=== PATIENT | female | born 1995 | race Caucasian/White ===

== ENCOUNTER 2018-10-31 21:37 | Inpatient (IN) | payer OTHER ==
[2018-10-31 22:29] LABS: BASO % 0.4 % (0-2.0); EOS % 0.6 % (0-4.5); HEMATOCRIT 35.4 % (32.4-45.2); HEMOGLOBIN 12.4 GM/dL (10.7-15.3); LYMPH % 22.1 % (8-40); MCH 30.2 pg (25.7-33.7); MCHC 35.1 g/dl (32.0-36.0); MEAN PLT VOLUME 9.5 fl (7.5-11.1); MONO % 7.8 % (3.8-10.2); NEUT % 69.1 % (42.8-82.8); PLATELET COUNT 217 K/MM3 (134-434); RBC 4.11 M/mm3 (3.60-5.2); WHITE BLOOD COUNT 9.5 K/mm3 (4.0-10.0)
[2018-10-31] MEDS ORDERED: SODIUM PHOSPHATE/NA BIPHOS 133 ML ENEMA PR ONE (22:30)
[2018-10-31 22:43] LABS: INR 0.92 (0.83-1.09); PROTHROMBIN TIME (PATIENT) 10.9 SEC (9.7-13.0)
--- NOTE | 2018-10-31 22:45 | HP ---
Past Medical History - Primary Care Physician PCP:: Estefania Jenkins - Admission Chief Complaint: 23 yrs , EDC 11/03/18 , 39.4/7 weeks gestation, srom since 9.10 PM , no pain yet . History of Present Illness: pt has care at [facility] she was evaluated on 10/21/18 in L&D for decrease FM . 10/21/18 sono 36.4 weeks , bpp4/8, mitchell 13.2 she was observed in L&D for continuous monitoring , FHR throughout stay was cat-1 Repeat sono & BPP with MFM reported as 38.2 weeks, Vx, Ant Placenta, Bpp8/8, EFW 6'15" , MITCHELL 12.8 cm pt was instructed to keep watch on FM , she returned for NST on 10/25 & 10/28. she did not go back to follow with her clinic chart was obtained 06/26/18 O Pos, Rubella immune, Hbsag neg, h/h10.9/31.0, hiv neg 07/04/18 1 hr gtt 123 , h/h11/32 , AFP neg FINAL EDC assigned to her was 10/24/18 Sonogram done for growth : Sono --21.1 wks 08/20/18-- 29.6 wks, 09/18/18--33.3 wks h/o Tdap & Flu vaccine taken 10/21/18 labs hIV neg History Source: Patient, Medical Record Limitations to Obtaining History: No Limitations - Past Medical History PHOTOSTATIC COPY MAKER: No: Migraine, Seizure Cardiovascular: No: HTN, Murmur Pulmonary: No: Asthma Hepatobiliary: Yes: Other (none known) Renal/: No: UTI ...: 3 ...Para: 2 (2NSVD 2011 in [place] baby girl, 2013 in [place]-baby girl ) ...Term: 2 ...LMP: 02/11/18 ... Weeks Gestation by Dates: 37.4 ...EDC by Dates: 11/18/18 (Mistaken dates ) ...EDC by Sono: 11/03/18 (39.4 weeks by SONO ) Heme/Onc: Yes: Anemia (rx po vit & iron), Other (denies) Infectious Disease: Yes: Other (declines std) Psych: No: Addictions, Anxiety, Bipolar, Depression, Panic, Psychosis, Schizophrenia, Other Endocrine: No: Diabetes Insipidus, Diabetes Mellitus, Hyperthyroidism, Hypothyroidism - Past Surgical History Past Surgical History: Yes: None Hx Myomectomy: No Hx Transabdominal Cerclage: No - Smoking History Smoking history: Never smoked Have you smoked in the past 12 months: No - Alcohol/Substance Use Hx Alcohol Use: No History of Substance Use: reports: None Home Medications - Allergies Allergies/Adverse Reactions: Allergies Allergy/AdvReac Type Severity Reaction Status Date / Time No Known Allergies Allergy Verified 10/25/18 15:52 - Home Medications Home Medications: Ambulatory Orders Prenat 115/Iron Fum/Folic/Dss [ 19 Tablet] 1 tab PO DAILY 10/21/18 Physical Exam - Maternity Constitutional: Yes: Well Nourished, No Distress, Anxious Eyes: Yes: WNL HENT: Yes: WNL, Normocephalic Neck: Yes: WNL, Supple Cardiovascular: Yes: WNL, Regular Rate and Rhythm Lungs: Clear to auscultation Breast(s): Yes: WNL. No: Mass - Abdominal Exam/OB Fundal Height: 38 Number of Fetuses: Single Presentation: Vertex Contractions: No Monitor Mode: External Heart Rate (range): 145 Heart Rate Location: [facility] Category: I Accelerations: Uniform - Vaginal Exam/OB Vaginal Bleediing: No Speculum Exam: No Dilatation (cm): 1-2 Effacement (%): 60 Amniotic Membrane Status: Ruptured Nitrazine Test: Positive Amniotic Fluid: Yes: Clear Presentation: Vertex/Position (exam time at 9.50 PM) Station: -3 - Physical Exam Musculoskeletal: Yes: WNL Extremities: Yes: WNL. No: Calf Tenderness Edema: Yes Edema: LLE: 1+, RLE: 1+ Integumentary: Yes: Tattoos Deep Tendon Reflex Grade: Normal +2 ...Motor Strength: WNL Psychiatric: Yes: WNL, Alert, Oriented - Labs Lab Results: CBC, BMP 10/31/18 22:00 Microbiology 10/21/18 22:45 Vaginal Group B Streptococcus Screen (RORY) - Final NO BETA HEMOLYTIC STREPTOCOCCI ISOLATED Laboratory Tests 10/21/18 10/21/18 21:45 22:45 C. trachomatis (ADAM) Negative HIV 1&2 Antibody Screen Negative HIV P24 Antigen Negative N. gonorrhoeae (ADAM) Negative Laboratory Tests 10/31/18 22:00 PT with INR 10.90 INR 0.92 PTT (Actin FS) 27.2 Laboratory Tests 10/31/18 22:00 Sodium 136 Potassium 3.8 Chloride 105 Carbon Dioxide 21 BUN 8 Creatinine 0.5 L Random Glucose 115 H Calcium 8.6 Problem List - Problems (1) with 39 completed weeks gestation Code(s): Z3A.39 - 39 WEEKS GESTATION OF (2) SROM (spontaneous rupture of membranes) Code(s): UIV5214 - Assessment/Plan 23 yrs , 39.4/7 weeks, srom , not in labor, GBS neg , care elsewhere Plan may ambulate pitocin augmentation prn trial vaginal delivery stadol + phenrgan & or epidural for labor analgesia
[2018-10-31 22:46] LABS: ACTIVATED PTT 27.2 SECONDS (25.2-36.5)
[2018-10-31 22:59] LABS: ANION GAP 9 MMOL/L (8-16); BLOOD UREA NITROGEN 8 mg/dL (7-18); CALCIUM 8.6 mg/dL (8.5-10.1); CHLORIDE 105 mmol/L (98-107); CO2 21 mmol/L (21-32); CREATININE 0.5 mg/dL (0.55-1.3); GLUCOSE,RANDOM 115 mg/dL (74-106); POTASSIUM 3.8 mmol/L (3.5-5.1); SODIUM 136 mmol/L (136-145)
[2018-10-31] MEDS ORDERED: BUTORPHANOL TARTRATE 1 MG/ML VIAL IVPB ONE (23:00)
[2018-10-31] MEDS ORDERED: DEXTROSE 5%-LACTATED RINGERS 1,000 ML IV SCH (23:00)
[2018-10-31] MEDS ORDERED: PROMETHAZINE HCL 25 MG/1 ML VIAL IVPUSH ONE (23:00)
[2018-10-31 23:06] VITALS: BMI 30.2
[2018-11-01] MEDS ORDERED: PROMETHAZINE HCL 25 MG/1 ML VIAL ONE (01:24)
[2018-11-01] MEDS ORDERED: BUTORPHANOL TARTRATE 1 MG/ML VIAL ONE (01:24)
[2018-11-01] MEDS ORDERED: LIDOCAINE HCL 1% PRESERVATIVE FREE - 30ML VIAL ONE (01:33)
[2018-11-01] MEDS ORDERED: OXYTOCIN 20 UNITS in 0.9% NS 20 UNIT/1,000 ML INFUS.BAG IV ONE (01:33)
[2018-11-01] MEDS ORDERED: FENTANYL/BUPIVACAINE/NS/PF - PCEA - 50 ML DISP.SYRIN EP ONE (02:28)
--- NOTE | 2018-11-01 02:30 | PN ---
Progress Note, Labor Vaginal Exam #1 Labor Exam Date: 11/01/18 Labor Exam Time: 02:20 Heart Rate (range): 150-160 Dilatation: 4 Effacement (%): 90 Amniotic Membrane Status: Ruptured Presentation: Vertex/Position Station: -1 Remarks: fhr cat-1 uc 2-4 min irregular 1.25 AM Stadol 1mg + Phenrgan 25 mg iv stat was given pt requests for Epidural Vaginal Exam #2 Labor Exam Date: 11/01/18 Labor Exam Time: 05:15 Heart Rate (range): 150 Dilatation: 10 Effacement (%): 100 Amniotic Membrane Status: Ruptured Presentation: Vertex/Position Station: +2 Remarks: fhr cat-1 UC 2-4 min pt wants to push 3.15AM epidural labor analgesia was given Selected Entries 11/01/18 05:00 Pulse Rate 130 H Respiratory 17 Rate Blood Pressure 104/67 O2 Sat by Pulse 100 Oximetry (%) Laboratory Tests 10/31/18 22:00 Sodium 136 Potassium 3.8 Chloride 105 Carbon Dioxide 21 Anion Gap 9 BUN 8 Creatinine 0.5 L Random Glucose 115 H Calcium 8.6
[2018-11-01] MEDS ORDERED: NALOXONE HCL 0.4 MG/ML VIAL IVPUSH PRN (03:09)
[2018-11-01] MEDS ORDERED: FENTANYL/BUPIVACAINE/NS/PF - PCEA - 50 ML DISP.SYRIN EP SCH ×2 (03:15→04:02)
[2018-11-01] MEDS ORDERED: METHYLERGONOVINE MALEATE 0.2 MG/1 ML AMP IM PRN (06:12)
[2018-11-01] MEDS ORDERED: BISACODYL 10 MG SUPP.RECT RC PRN (06:12)
[2018-11-01] MEDS ORDERED: oxyCODONE HCL 5 MG TABLET PO PRN (06:12)
[2018-11-01] MEDS ORDERED: WITCH HAZEL 50% (TUCKS) 40 PAD/JAR PAD TP PRN (06:12)
[2018-11-01] MEDS ORDERED: BENZOCAINE 20% 57 GM BOTTLE TP PRN (06:12)
[2018-11-01] MEDS ORDERED: BENZOCAINE 28 GM HEMORRHOIDAL OINTMENT TP PRN (06:12)
[2018-11-01] MEDS ORDERED: OXYTOCIN 20 UNITS in 0.9% NS 20 UNIT/1,000 ML INFUS.BAG IV SCH (06:15)
--- NOTE | 2018-11-01 06:26 | PN ---
Delivery - Delivery Vaginal Delivery: No Problems, Spontaneous (baby delivered vx presentation, BERNIE position , immediate oral & nasal suction was done at perineum , shoulder & body deievered without problem . placenta & membranes delievered . perineum & vagina intact) Type of Anesthesia: Epidural EBL (cc): 150 Delivery, Single - Stages of Labor Date 1st Stage Initiatied: 11/01/18 Time 1st Stage Initiated: 00:00 Date 2nd Stage Initiated: 11/01/18 Time 2nd Stage Initiated: 05:15 Date of Delivery: 11/01/18 Time of Delivery: 05:46 Date Placenta Delivered: 11/01/18 Time Placenta Delivered: 05:52 Placenta: Yes: Spontaneous, Uterine Exploration - Condition of Infant Band Instrument Repairer/Terrazzo Journeyman Present: No Infant Gender: Female Weight: 6 lb 15 oz Position: Left, OA Total Hours ROM (Hrs/Mins): 7hrs 42 min - 1 Minute Total Score: 9 5 Minutes Total Score: 9 - Feeding Plan Initial Plan: Exclusive throughout hospitalization Remarks - Remarks Remarks: 23 yrs , 39.4/7 weeks, admitted with SROM , went into spontaneous labor gbs neg care at [facility]
[2018-11-01] MEDS: FERROUS SO4 325 MG TABLET (FP) PO SCH ×2 (08:15→16:51)
[2018-11-01] MEDS: ACETAMINOPHEN 325 MG TABLET (FP) PO PRN ×2 (08:53→16:50)
[2018-11-01] MEDS: IBUPROFEN 600 MG TABLET (FP) PO PRN ×2 (08:54→16:50)
[2018-11-01] MEDS: PRENATAL VITAMINS W/ FOLIC ACID TABLET (FP) PO SCH (09:14)
[2018-11-01] MEDS ORDERED: TUBERCULIN PPD 5 TU/0.1ML SYRINGE (IN PATIENT USE ONLY) ID ONE (10:00)
[2018-11-02] MEDS: IBUPROFEN 600 MG TABLET (FP) PO PRN ×4 (03:46→21:19)
[2018-11-02 07:34] LABS: BASO % 0.4 % (0-2.0); EOS % 1.7 % (0-4.5); HEMOGLOBIN 12.1 GM/dL (10.7-15.3); LYMPH % 27.9 % (8-40); MCH 30.5 pg (25.7-33.7); MCHC 34.7 g/dl (32.0-36.0); MEAN CELL VOLUME 87.9 fl (80-96); MEAN PLT VOLUME 9.6 fl (7.5-11.1); MONO % 7.2 % (3.8-10.2); NEUT % 62.8 % (42.8-82.8); PLATELET COUNT 178 K/MM3 (134-434); RBC 3.98 M/mm3 (3.60-5.2); RDW 14.2 % (11.6-15.6)
--- NOTE | 2018-11-02 08:06 | PN ---
Post Progress Note - Subjective Subjective: no comlains Post Day: 1 Type of Delivery: Vital Signs: Vital Signs Temperature 98.3 F 11/02/18 06:00 Pulse Rate 82 11/02/18 06:00 Respiratory Rate 20 11/02/18 06:00 Blood Pressure 107/63 11/02/18 06:00 O2 Sat by Pulse Oximetry (%) 100 11/01/18 05:30 Breast Exam: Yes: Soft, Other (not breast feeding ). No: Engorged Uterus: Yes: Fundus Firm, Fundus below umbilicus, Non-tender Lochia: Yes: Rubra Lochia, amount: Moderate Extremities: Yes: Calves non-tender Perineum: Yes: Episiotomy Activity: Ambulating - Labs Labs: CBC WBC 10.0 K/mm3 (4.0-10.0) 11/02/18 07:00 RBC 3.98 M/mm3 (3.60-5.2) 11/02/18 07:00 Hgb 12.1 GM/dL (10.7-15.3) 11/02/18 07:00 Hct 35.0 % (32.4-45.2) 11/02/18 07:00 MCV 87.9 fl (80-96) 11/02/18 07:00 MCH 30.5 pg (25.7-33.7) 11/02/18 07:00 MCHC 34.7 g/dl (32.0-36.0) 11/02/18 07:00 RDW 14.2 % (11.6-15.6) 11/02/18 07:00 Plt Count 178 K/MM3 (134-434) 11/02/18 07:00 MPV 9.6 fl (7.5-11.1) 11/02/18 07:00 Absolute Neuts (auto) 6.3 K/mm3 (1.5-8.0) 11/02/18 07:00 Neutrophils % 62.8 % (42.8-82.8) 11/02/18 07:00 Lymphocytes % 27.9 % (8-40) D 11/02/18 07:00 Monocytes % 7.2 % (3.8-10.2) 11/02/18 07:00 Eosinophils % 1.7 % (0-4.5) D 11/02/18 07:00 Basophils % 0.4 % (0-2.0) 11/02/18 07:00 Nucleated RBC % 0 % (0-0) 11/02/18 07:00 Problem List - Problems (1) with 39 completed weeks gestation Code(s): Z3A.39 - 39 WEEKS GESTATION OF (2) SROM (spontaneous rupture of membranes) Code(s): OXY4244 - (3) Normal spontaneous vaginal delivery Code(s): O80 - ENCOUNTER FOR FULL-TERM UNCOMPLICATED DELIVERY (4) Encounter for care after hospital delivery Code(s): Z39.2 - ENCOUNTER FOR ROUTINE FOLLOW-UP Assessment/Plan stable. plan discharge today
[2018-11-02] MEDS: FERROUS SO4 325 MG TABLET (FP) PO SCH ×2 (08:25→16:51)
[2018-11-02] MEDS: ACETAMINOPHEN 325 MG TABLET (FP) PO PRN ×3 (08:28→21:18)
[2018-11-02] MEDS: PRENATAL VITAMINS W/ FOLIC ACID TABLET (FP) PO SCH (09:33)
[2018-11-02] MEDS ORDERED: SENNOSIDES/DOCUSATE COMBO (SENNA PLUS) TABLET (UD) PO PRN (22:00)
--- NOTE | 2018-11-03 07:36 | DS ---
Physical Exam-GRAPHOTYPE OPERATOR Vital Signs: Vital Signs Temperature 98.0 F 11/02/18 22:00 Pulse Rate 69 11/02/18 22:00 Respiratory Rate 20 11/02/18 22:00 Blood Pressure 107/61 11/02/18 22:00 O2 Sat by Pulse Oximetry (%) 100 11/01/18 05:30 Constitutional: Yes: Well Nourished Eyes: Yes: WNL HENT: Yes: WNL, Normocephalic Neck: Yes: WNL Cardiovascular: Yes: WNL, Regular Rate and Rhythm Respiratory: Yes: WNL, Regular, CTA Bilaterally Gastrointestinal: Yes: WNL, Normal Bowel Sounds Renal/: Yes: WNL ....Post : Yes: Uterus firm, Moderate lochia rubra (perineum intact) Breast(s): Yes: WNL (bottle feeding) Musculoskeletal: Yes: WNL Extremities: Yes: WNL. No: Calf Tenderness Edema: LLE: Trace, RLE: Trace Integumentary: Yes: Tattoos ...Motor Strength: WNL Psychiatric: Yes: WNL, Alert, Oriented Labs: CBC, BMP 11/02/18 07:00 10/31/18 22:00 Delivery - Delivery Vaginal Delivery: No Problems, Spontaneous (baby delivered vx presentation, BERNIE position , immediate oral & nasal suction was done at perineum , shoulder & body deievered without problem . placenta & membranes delievered . perineum & vagina intact) Type of Anesthesia: Epidural EBL (cc): 150 Delivery, Single - Stages of Labor Date 1st Stage Initiatied: 11/01/18 Time 1st Stage Initiated: 00:00 Date 2nd Stage Initiated: 11/01/18 Time 2nd Stage Initiated: 05:15 Date of Delivery: 11/01/18 Time of Delivery: 05:46 Time Placenta Delivered: 05:52 Placenta: Yes: Spontaneous, Uterine Exploration - Condition of Infant Kit Assembler/Kraft Digester Operator Present: No Gender: Female Weight: 6 lb 15 oz Position: Left, OA Total Hours ROM (Hrs/Mins): 7hrs 42 min - 1 Minute Total Score: 9 5 Minutes Total Score: 9 - Feeding Plan Initial Plan: Exclusive throughout hospitalization Remarks - Remarks Remarks: 23 yrs , 39.4/7 weeks, admitted with OM , went into spontaneous labor gbs neg care at [facility] post course uneventful. discharge today. Discharge Summary Reason For Visit: LABOR Current Active Problems Encounter for care after hospital delivery (Acute) Normal spontaneous vaginal delivery (Acute) with 39 completed weeks gestation (Acute) SROM (spontaneous rupture of membranes) (Acute) Condition: Stable - Instructions Diet, Activity, Other Instructions: Post Instructions DIET: Continue good diet high in protein, calcium, and iron rich foods. Drink at least eight (8) glasses of water daily in addition to other fluids. ___ Regular diet MEDICATIONS: Continue vitamins and iron as previously directed. Motrin and Tylenol may be taken for minor discomfort. ACTIVITY: Mild to moderate exercise may be started in two (2) weeks. Take frequent rest periods. Resume normal activity after six (6) week check up. WOUND CARE OF OPERATIVE SITE: Continue use of perineal bottle until vaginal discharge stops. Keep area clean. Shower daily. Keep abdominal wound dry. Report any drainage or redness to physician. Tub baths, tampons and douches are not permitted for [address] Breast feeding & or Bottle feeding BREAST CARE: (For those that are not ): If engorgement occurs: Wear tight fitting bra. Take Tylenol or Motrin for pain. Apply cold packs (ice in bags to each breast ) FAMILY PLANNING: There are many control alternatives to pursue and they should be discussed at your first office visit. You may resume sexual activity after your six (6) week check up. (Remember, breast feeding is not a contraceptive) NEXT PHYSICIAN APPOINTMENT: Be certain to call for a four - six (4-6) week appointment, unless otherwise directed. Call Clinic or got to Emergency Dept if you have any of the following: Heavy vaginal bleeding Painful urination Leg pain Unusual odor noted to vaginal bleeding High fever Red streaking noted on breast Referrals: Estefania Jenkins MD [Staff Physician] - Disposition: HOME - Home Medications Comprehensive Discharge Medication List: Ambulatory Orders Prenat 115/Iron Fum/Folic/Dss [ 19 Tablet] 1 tab PO DAILY 10/21/18 Ferrous Sulfate [Feosol] 325 mg PO BIDWM #90 tab 11/01/18 Ibuprofen [Motrin -] 200 mg PO Q4H PRN tablet 11/01/18 Vitamins (Sjr) - 1 tab PO DAILY tablet 11/01/18 Witch Prudence 50% (Tughadas) [Tucks Pads -] 1 pad TP PRN PRN pad 11/01/18
[2018-11-03] MEDS: ACETAMINOPHEN 325 MG TABLET (FP) PO PRN (07:47)
[2018-11-03] MEDS: IBUPROFEN 600 MG TABLET (FP) PO PRN (07:48)
[2018-11-03] MEDS: FERROUS SO4 325 MG TABLET (FP) PO SCH (07:48)
[2018-11-03 08:36] VITALS: BP 104/50; PULSE 65; TEMP 97.8
[2018-11-03] MEDS: PRENATAL VITAMINS W/ FOLIC ACID TABLET (FP) PO SCH (10:14)
== END 2018-11-03 11:05 | disposition home or self-care (01) | DRG 560 ==
LOC: JDEL 21:37 → JLDR 21:38 → J3W 11-01 08:30
PROVIDERS: ADMIT Obstetrics & Gynecology; ATTEND Obstetrics & Gynecology
PROC: 10E0XZZ Delivery of Products of Conception, External Approach (ICD-10-PCS; principal; 2018-11-01)
DX: O80 Encounter for full-term uncomplicated delivery (principal); Z3A.39 39 weeks gestation of pregnancy; Z37.0 Single live birth
CPT/HCPCS: 36415; 59409; 71046-TC-FY; 80048; 85025; 85610; 85730; 86593; 86850; 86900; 86901